=== PATIENT | female | born 2000 | race Caucasian/White ===

== ENCOUNTER 2020-08-23 10:06 | Emergency (ER) | payer OTHER ==
[~2020-08-23] VITALS: Ht 160 cm; Wt 54.4 kg
[2020-08-23] MEDS ORDERED: INTESTINEX680 M1 PO (19:15)
[2020-08-23] MEDS ORDERED: ZITHROMAX500 MG PO (19:15)
== END 2020-08-23 19:50 | disposition home or self-care (01) ==
LOC: ER 10:06 → EMR PED 10:06 → ER 10:55
DX: R10.2 Pelvic and perineal pain (principal); K52.89 Other specified noninfective gastroenteritis and colitis; U07.1 COVID-19; B96.0 Mycoplasma pneumoniae [M. pneumoniae] as the cause of diseases classified elsewhere; N20.0 Calculus of kidney

== ENCOUNTER 2021-08-06 15:58 | Outpatient (CLI) | payer OTHER ==
[~2021-08-06 15:58] MED LIST: INTESTINEX680 M1 PO; ZITHROMAX500 MG PO
== END 2021-08-06 17:23 | disposition home or self-care (01) ==
LOC: PRENATAL 15:58
PROVIDERS: ATTEND Obstetrics & Gynecology Maternal & Fetal Medicine
DX: O35.0XX1 Maternal care for (suspected) central nervous system malformation in fetus, fetus 1 (principal); O35.3XX1 Maternal care for (suspected) damage to fetus from viral disease in mother, fetus 1; O98.512 Other viral diseases complicating pregnancy, second trimester; Z36.89 Encounter for other specified antenatal screening; Z3A.21 21 weeks gestation of pregnancy

== ENCOUNTER 2021-10-06 11:16 | Outpatient (CLI) | payer OTHER | END 2021-10-06 19:38 | disposition home or self-care (01) | LOC: OBS/DEL 11:16 | PROVIDERS: ATTEND Obstetrics & Gynecology | DX: O60.03 Preterm labor without delivery, third trimester (principal); Z3A.29 29 weeks gestation of pregnancy ==

== ENCOUNTER 2021-12-15 04:52 | Inpatient (IN) | payer OTHER ==
[~2021-12-15] VITALS: Ht 160 cm; Wt 68.9 kg
[2021-12-15] MEDS ORDERED: PRENATABS RX T1 EACH PO (05:24)
== END 2021-12-17 15:38 | disposition home or self-care (01) | DRG 807 ==
LOC: OB/GYN 04:52 → LDR 04:52 → OB/GYN 20:57
PROVIDERS: ADMIT Obstetrics & Gynecology; ATTEND Obstetrics & Gynecology
PROC: 10E0XZZ Delivery of Products of Conception, External Approach (ICD-10-PCS; principal; 2021-12-15)
PROC: 0KQM0ZZ Repair Perineum Muscle, Open Approach (ICD-10-PCS; 2021-12-15)
PROC: 4A1HXCZ Monitoring of Products of Conception, Cardiac Rate, External Approach (ICD-10-PCS; 2021-12-15)
DX: O70.1 Second degree perineal laceration during delivery (principal); Z37.0 Single live birth; Z3A.39 39 weeks gestation of pregnancy; Z20.822 Contact with and (suspected) exposure to COVID-19

== ENCOUNTER 2023-01-13 13:31 | Outpatient (CLI) | payer OTHER ==
[~2023-01-13 13:31] MED LIST changes: +PRENATABS RX T1 EACH PO
== END 2023-01-13 15:15 | disposition home or self-care (01) ==
LOC: PRENATAL 13:31
PROVIDERS: ATTEND Obstetrics & Gynecology Maternal & Fetal Medicine
DX: O36.80X0 Pregnancy with inconclusive fetal viability, not applicable or unspecified (principal); Z14.8 Genetic carrier of other disease; Z3A.12 12 weeks gestation of pregnancy

== ENCOUNTER 2023-03-12 08:04 | Outpatient (CLI) | payer OTHER | END 2023-03-12 11:36 | disposition home or self-care (01) | LOC: PRENATAL 08:04 | PROVIDERS: ATTEND Obstetrics & Gynecology Maternal & Fetal Medicine | DX: O35.3XX0 Maternal care for (suspected) damage to fetus from viral disease in mother, not applicable or unspecified (principal); O44.00 Complete placenta previa NOS or without hemorrhage, unspecified trimester; Z3A.20 20 weeks gestation of pregnancy ==

== ENCOUNTER 2023-04-20 07:07 | Outpatient (CLI) | payer OTHER ==
[2023-04-20] MEDS ORDERED: PRENATAL TABLE1 EAC5 PO (07:13)
== END 2023-04-20 18:34 | disposition home or self-care (01) ==
LOC: OBS/DEL 07:07
PROVIDERS: ATTEND Obstetrics & Gynecology
DX: O26.892 Other specified pregnancy related conditions, second trimester (principal); E16.1 Other hypoglycemia; S30.1XXA Contusion of abdominal wall, initial encounter; W18.39XA Other fall on same level, initial encounter; Y93.89 Activity, other specified; Y92.89 Other specified places as the place of occurrence of the external cause; Y99.8 Other external cause status; Z91.040 Latex allergy status; Z3A.25 25 weeks gestation of pregnancy

== ENCOUNTER 2023-06-16 09:08 | Outpatient (CLI) | payer OTHER ==
[~2023-06-16 09:08] MED LIST changes: +PRENATAL TABLE1 EAC5 PO
== END 2023-06-16 09:09 | disposition home or self-care (01) ==
LOC: PRENATAL 09:08
PROVIDERS: ATTEND Obstetrics & Gynecology Maternal & Fetal Medicine
DX: O26.849 Uterine size-date discrepancy, unspecified trimester (principal); O36.8199 Decreased fetal movements, unspecified trimester, other fetus; Z3A.34 34 weeks gestation of pregnancy

== ENCOUNTER 2023-07-13 14:24 | Inpatient (IN) | payer OTHER ==
[~2023-07-13] VITALS: Ht 160 cm; Wt 68.9 kg
[2023-07-13 16:11] LABS: PH,URINE 6.5 (5.0-8.0); URINE APPEARANCE Clear; URINE BILIRRUBIN Negative (NEGATIVE); URINE BLOOD NHT; URINE COLOR Yellow; URINE GLUCOSE Negative (NEGATIVE); URINE LEUKOCYTE Trace; URINE NITRATE Negative; URINE PROTEIN Negative (NEGATIVE); URINE UROBILINOGEN 0.2 E.U./dl
[2023-07-13 16:14] LABS: HEMOGLOBIN 9.4 g/dL (12.0-15.00); MEAN CORPUSCULAR HEMOGLOBIN 21.8 pg (27.00-32.0); MEAN CORPUSCULAR HGB CONC 32.4 g/dl (32.0-36.0); PLATELET COUNT 269 K/uL (150-450)
[2023-07-13 16:14] LABS: URINE BACTERIA 272.1 uL (0.0-1933); URINE EPITHELIAL CELLS 14.8 uL (0.0-38.8); URINE RBC 16.9 uL (0.0-20.8); URINE WBC 36.2 uL (0.0-23.2)
[2023-07-13 16:28] LABS: INR < 0.93; PARTIAL THROMBOPLASTIN TIME 27.2 SECONDS (22.0-34.0); PROTHROMBIN TIME 9.6 SECONDS (9.0-11.5)
[2023-07-13 16:30] LABS: MEAN CELL VOLUME 67.4 fL (80.00-100.00); RED CELL DISTRIBUTION WIDTH 18.4 % (11.5-14.5)
[2023-07-14 16:50] LABS: HEMATOCRIT 29.9 % (36.0-45.00); HEMOGLOBIN 9.8 g/dL (12.0-15.00); MEAN CORPUSCULAR HEMOGLOBIN 22.1 pg (27.00-32.0); MEAN CORPUSCULAR HGB CONC 32.9 g/dl (32.0-36.0); PLATELET COUNT 281 K/uL (150-450); RED BLOOD COUNT 4.47 M/uL (4.00-6.00); RED CELL DISTRIBUTION WIDTH 18.3 % (11.5-14.5)
== END 2023-07-16 14:19 | disposition home or self-care (01) | DRG 807 ==
LOC: OBS/DEL 14:24 → LDR 07-14 01:29 → OB/GYN 07-14 01:29 → OBS/DEL 07-14 01:29 → LDR 07-14 01:46 → OB/GYN 07-14 09:57
PROVIDERS: ADMIT Obstetrics & Gynecology; ATTEND Obstetrics & Gynecology
PROC: 10E0XZZ Delivery of Products of Conception, External Approach (ICD-10-PCS; principal; 2023-07-14)
PROC: 4A1HXCZ Monitoring of Products of Conception, Cardiac Rate, External Approach (ICD-10-PCS; 2023-07-14)
DX: O80 Encounter for full-term uncomplicated delivery (principal); Z37.0 Single live birth; Z3A.38 38 weeks gestation of pregnancy; Z20.822 Contact with and (suspected) exposure to COVID-19

== ENCOUNTER 2024-11-16 10:45 | Emergency (ER) | payer OTHER ==
[~2024-11-16] VITALS: Ht 157.5 cm; Wt 59.0 kg
[2024-11-16 11:28] VITALS: BP 110/75; O2SAT 97
[2024-11-16] MEDS ORDERED: 0.9 % SODIUM CHLORIDE 1,000 ML IV SCH (11:45)
[2024-11-16 12:31] LABS: HEMATOCRIT 42.8 % (36.0-45.00); HEMOGLOBIN 14.7 g/dL (12.0-15.00); MEAN CELL VOLUME 80.9 fL (80.00-100.00); MEAN CORPUSCULAR HEMOGLOBIN 27.7 pg (27.00-32.0); MEAN CORPUSCULAR HGB CONC 34.3 g/dl (32.0-36.0); PLATELET COUNT 260 K/uL (150-450); RED BLOOD COUNT 5.29 M/uL (4.00-6.00); RED CELL DISTRIBUTION WIDTH 13.9 % (11.5-14.5)
[2024-11-16 12:56] LABS: CALCIUM 9.5 mg/dL (8.5-10.1); CREATININE SERUM 0.62 mg/dL (0.55-1.02); GFR 118.26; POTASSIUM 3.4 mEq/L (3.5-5.1)
[2024-11-16 13:02] LABS: PH,URINE 5.5 (5.0-8.0); URINE APPEARANCE Clear; URINE BILIRRUBIN Negative (NEGATIVE); URINE BLOOD Negative; URINE COLOR Yellow; URINE GLUCOSE Negative (NEGATIVE); URINE LEUKOCYTE Negative; URINE NITRATE Negative; URINE PROTEIN Trace (NEGATIVE); URINE UROBILINOGEN 0.2 E.U./dl
[2024-11-16 13:06] LABS: URINE EPITHELIAL CELLS 13.2 uL (0.0-38.8); URINE WBC 21.9 uL (0.0-23.2)
[2024-11-16 13:10] LABS: URINE CAST 0.29 uL (0.0-1.40); URINE KETONE 40 (NEGATIVE); URINE RBC 1.4 uL (0.0-20.8)
== END 2024-11-16 15:16 | disposition home or self-care (01) ==
LOC: ER 10:46
PROVIDERS: Emergency Medicine
DX: K52.89 Other specified noninfective gastroenteritis and colitis (principal); Z91.040 Latex allergy status